=== PATIENT | male | born 1975 | race African-American/Black ===

== ENCOUNTER 2020-09-28 12:11 | Emergency (ER) | payer OTHER ==
[~2020-09-28] VITALS: Ht 172.7 cm; Wt 190.5 kg
[~2020-09-28 12:11] MED LIST: HYDROCHLOROTHIA50 MG PO; KEFLEX500 MG PO; NORCO 5-325 TA1 EACH PO; NORVASC10 MG PO; TOBREX5 ML OP; VENTOLIN17 GM INH; ZPAK PO
[2020-09-28] MEDS ORDERED: NORFLEX100 MG PO (13:10)
[2020-09-28] MEDS ORDERED: MEDROLDOSEPACK PO (13:10)
[2020-09-28 13:34] VITALS: BP 176/79
== END 2020-09-28 13:35 | disposition home or self-care (01) ==
LOC: ER 12:11
DX: S39.012A Strain of muscle, fascia and tendon of lower back, initial encounter (principal); M54.16 Radiculopathy, lumbar region; I10 Essential (primary) hypertension; E66.01 Morbid (severe) obesity due to excess calories; Z79.2 Long term (current) use of antibiotics; Z79.899 Other long term (current) drug therapy; Z68.44 Body mass index [BMI] 60.0-69.9, adult; V89.2XXA Person injured in unspecified motor-vehicle accident, traffic, initial encounter; Y93.I9 Activity, other involving external motion; Y92.488 Other paved roadways as the place of occurrence of the external cause; Y99.8 Other external cause status

== ENCOUNTER 2021-09-28 17:02 | Inpatient (IN) | payer OTHER ==
[~2021-09-28] VITALS: Ht 170.2 cm; Wt 183.3 kg
[~2021-09-28 17:02] MED LIST changes: +MEDROLDOSEPACK PO; +NORFLEX100 MG PO
[2021-09-28 17:40] VITALS: BP 200/59
[2021-09-28 21:27] LABS: HCO3 27.7 mmol/L (22.0-26.0); PCO2 42.4 mmHg (35.0-45.0); pH 7.433 (7.360-7.450); sO2 88.8 % (92.0-98.0)
[2021-09-28 21:28] LABS: PO2 53.8 mmHg (80.0-100.0)
[2021-09-28 23:23] LABS: BASOPHILS 0.5 % (0.0-2.0); EOSINOPHILS 1.8 % (0.0-3.0); HEMATOCRIT 46.1 % (42.0-52.0); HEMOGLOBIN 15.2 gm/dL (14.0-18.0); LYMPHOCYTES 5.4 % (24.0-44.0); MCH 29.6 pg (26.0-34.0); MCHC 32.9 g/dL (28.0-37.0); MCV 89.8 fL (80.0-100.0); MONOCYTES 8.8 % (1.0-8.0); PLATELET COUNT 238 thou/uL (150-400); POLYS 83.5 % (36.0-66.0); RBC 5.14 mil/uL (4.50-6.00); RDW 14.8 % (10.5-14.5); WBC 9.6 thou/uL (4.0-11.0)
[2021-09-28 23:30] LABS: CALCIUM 8.4 mg/dL (8.5-10.1); CREATININE 1.2 mg/dL (0.7-1.3); POTASSIUM 3.7 mmol/L (3.5-5.1)
[2021-09-28 23:40] LABS: MAGNESIUM 1.4 mg/dL (1.8-2.4); TOTAL BILIRUBIN 0.2 mg/dL (0.2-1.0); TOTAL PROTEIN 7.8 g/dL (6.4-8.2)
[2021-09-29 01:01] VITALS: BP 135/63
[2021-09-29 03:00] VITALS: BP 154/82
--- NOTE | 2021-09-29 04:31 | NUR ---
PT IS ON 4 LITER BLEED IN WITH THE CPAP. HE IS RESTING QUIETLY. HE IS MORE COMFORTABLE NOW THAT HE HAS A URINARY CATHETER IN PLACE. CALM AND COOPERATIVE.
[2021-09-29 06:53] LABS: APTT 27.6 Seconds (24.5-32.8); D-DIMER 3.54 ug/mLFEU (0.19-0.50); INR 1.08; PROTIME 11.7 Seconds (10.5-12.1)
[2021-09-29 07:42] VITALS: BP 99/75
--- NOTE | 2021-09-29 14:27 | NUR ---
INITIAL ASSESSMENT: SW reviewed chart and spoke with nursing and attending physician. Pt was admitted from home due to respiratory failure. Pt placed in Enhanced Isolation due to COVID. Pt has received the Toni [employer]oni COVID vaccination. Pt is afebrile and on 3L of O2. Pt is on IV abx/IV steorids. ID consulted. SW placed call to pt's room. No answer. Voice mailbox is not set up on listed contact number for pt ([phone]). Per chart, pt is alert/orientated x 4. Pt lives at home with his sister. Prior to admission, pt was independent with ADLs. Pt's PCP is listed as Dr. Rhina Dc. SW to continue to contact pt to obtain assessment info and discuss discharge planning. PT/OT ordered. SW is following to assist as needed with discharge planning.
[2021-09-29 16:01] VITALS: BP 147/90
--- NOTE | 2021-09-29 18:05 | NUR ---
PT ALERT AND ORIENTED TIMES FOUR, SOMEWHAT SLOW TO RESPOND TO QUESIONS. VSS. PT DENIES PAIN. PT WORKED WELL WITH PT/OT TODAY. UP SITTING ON THE SIDE OF BED FOR MOST OF THE SHIFT. PT TOLERATES MEDS AND MEALS. PT SLOWLY PROGRESSING TOWRADS POC GOALS.
[2021-09-29 19:23] VITALS: BP 122/67
[2021-09-30 02:43] VITALS: BP 104/67
--- NOTE | 2021-09-30 03:33 | NUR ---
ASSUMED PT CARE AT 1900. PT IS ALERT & ORIENTED X 3-4. PT IS SLOW TO RESPOND TO QUESTIONS AND NEEDS REASSURANCE. CURRENTLY ON CPAP WITH 4L O2. CHIANG WAS D/C'D DURING PREVIOUS SHIFT. PT HAS BEEN ABLE TO VOID AND HAS ADEQUATE OUTPUT. REMDESIVIR WAS STARTED DURING THIS SHIFT. VSS AFEBRILE. ALL NEEDS ARE MET AT THIS TIME. CONTINUE WITH PLAN OF CARE.
[2021-09-30 07:33] VITALS: BP 129/69
[2021-09-30 08:51] LABS: ABSOLUTE NEUTROPHILS 7.2 thou/uL (1.4-8.2); BASOPHILS 0.6 % (0.0-2.0); HEMATOCRIT 50.2 % (42.0-52.0); HEMOGLOBIN 16.2 gm/dL (14.0-18.0); LYMPHOCYTES 15.1 % (24.0-44.0); MCHC 32.2 g/dL (28.0-37.0); MCV 90.2 fL (80.0-100.0); MONOCYTES 10.9 % (1.0-8.0); PLATELET COUNT 291 thou/uL (150-400); POLYS 73.4 % (36.0-66.0); RBC 5.57 mil/uL (4.50-6.00); RDW 14.9 % (10.5-14.5); WBC 9.9 thou/uL (4.0-11.0)
[2021-09-30 09:16] LABS: ALBUMIN 2.9 g/dL (3.4-5.0); CALCIUM 8.6 mg/dL (8.5-10.1); POTASSIUM 3.8 mmol/L (3.5-5.1); TOTAL BILIRUBIN 0.3 mg/dL (0.2-1.0); TOTAL PROTEIN 8.3 g/dL (6.4-8.2)
[2021-09-30 09:30] LABS: ANION GAP 10 mmol/L (7-16); BUN 19 mg/dL (7-18); CALCIUM 8.9 mg/dL (8.5-10.1); CHLORIDE 99 mmol/L (98-107); CO2 28 mmol/L (21-32); DIRECT BILIRUBIN < 0.1 mg/dL (<0.1-0.2); GLUCOSE 98 mg/dL (74-106); PHOSPHORUS 4.6 mg/dL (2.5-4.9); POTASSIUM 4.5 mmol/L (3.5-5.1); SGOT 21 U/L (15-37); SGPT 19 U/L (30-65); SODIUM 137 mmol/L (136-145); TOTAL BILIRUBIN 0.3 mg/dL (0.2-1.0); TOTAL PROTEIN 8.1 g/dL (6.4-8.2)
[2021-09-30 11:35] VITALS: BP 153/86
--- NOTE | 2021-09-30 15:10 | NUR ---
BEV reviewed chart and spoke with nursing and attending physician. Pt remains in Enhanced Isolation due to COVID. Pt is afebrile and on 3L of O2. PT is on IV meds and Remdesivir. BEV spoke with pt via phone. Introduced role of SW. Pt is alert/orientated x 4. Pt states he lives at home with family. Prior to admission, pt was independent with ADLs. No use of DME. Pt's PCP is Dr. Rhina Dc in [place]. No hx of HH or post-acute placement. Pt states he recently started a new job and is hoping he can discharge home soon. He works from home. SW offered to provide documentation to verify pt's hospitalization if needed. Plan is for pt to discharge home when medically stable. BEV is following to assist as needed with discharge planning.
[2021-09-30 16:02] VITALS: BP 141/81
--- NOTE | 2021-09-30 17:40 | NUR ---
PT A/O X 4. PT NO COMPLAINTS OF PAIN. PT ASKS THIS RN X3 WHY PT IS STILL HERE, SPOKE WITH FAMILY VIA PHONE AT BEDSIDE TO HELP EDUCATE PT AND FAMILY. FALL PRECAUTIONS IN PLACE. WILL CONTINUE TO MONITOR.
--- NOTE | 2021-09-30 21:24 | HC ---
[facility] [place] [address] CONSULTATION Name: SUSANA MORRIS Room #: 353-P ADM IN M.R.#: [id number] Admission: 09/29/21 Attend Phys: Victorino Ramírez MD Discharge: Date of : 77 Report #: [id number] THIS REPORT FOR: cc: Rhina Dc Shanna R. DO Geha, Daniel J. MD ~ DATE OF SERVICE: 09/29/2021 INFECTIOUS DISEASES CONSULTATION REASON FOR CONSULTATION: Evaluate COVID-19 pneumonia. HISTORY OF PRESENT ILLNESS: The patient is a 46-year-old with underlying history of obesity, hypertension, obstructive sleep apnea. He has previously been vaccinated for COVID-19 last year where he received [employer] product. He has not had his booster. He noticed onset of fever, chills, headache, minimally productive cough, myalgias, arthralgias and progressive shortness of breath over the last 48 hours. He presented to the Emergency Room and he was hypoxic. He is now on 4 liters of oxygen per nasal cannula. X-ray showed bilateral pulmonary infiltrates. He has had previous pneumonia within the last month where he was on antibiotic therapy, treated at [facility]. He reports being COVID-19 negative at that point. He denies any nausea, vomiting or diarrhea. No dysuria or frequency. A 14-point review of system was negative other than what has been described above. He works from home. He has had no significant travel. No tuberculosis exposure or risk factors. No HIV or hepatitis history or risk factors. PAST MEDICAL HISTORY: Obesity, hypertension, obstructive sleep apnea, mild cerebral palsy, hammertoe surgery. FAMILY HISTORY: Diabetes and throat cancer. SOCIAL HISTORY: Current smoker of cigarettes, no significant alcohol intake. ALLERGIES: None known. MEDICATIONS: As noted on his MAR, which were reviewed. PHYSICAL EXAMINATION: GENERAL: He was afebrile and hemodynamically stable. He was morbidly obese. SKIN: Without rash or decubitus. No palpable adenopathy. HEENT: Eyes without scleral icterus. He did have conjunctivitis. Mouth without mucositis. NECK: Supple. LUNGS: Decreased breath sounds bilaterally. No consolidation. [facility] [address] [place] [address] CONSULTATION Name: SUSANA MORRIS Room #: 353-P [facility] IN [facility]#: [id number] Admission: 09/29/21 Attend Phys: Victorino Ramírez MD Discharge: Date of : 77 Report #: [id number] HEART: Regular, without murmur. ABDOMEN: Obese, soft and nontender. GENITAL AND RECTAL: Not performed. EXTREMITIES: Without clubbing, cyanosis or edema. NEUROLOGIC: Cranial nerves and strength in the upper and lower extremities within normal limits. PSYCHIATRIC: Mood without anxiety. LABORATORY DATA: Reviewed. MICROBIOLOGY: Reviewed. IMAGING: Chest x-ray reviewed. IMPRESSION: A 46-year-old with COVID-19 pneumonia due to SARS-CoV-2, respiratory failure, obstructive sleep apnea, hypertension, and morbid obesity. RECOMMENDATIONS: We will continue anti-inflammatory and antiviral therapy as well as antibiotic therapy, pending culture results. If the patient should progress, would add IL-6 inhibitor. This was discussed with the patient, who is in agreement with plan of care. <ELECTRONICALLY SIGNED> By: Cyrus Loza MD 09/30/21 [id number] yCrus Loza MD /nt
[2021-09-30 21:40] VITALS: BP 120/67
--- NOTE | 2021-10-01 03:10 | NUR ---
ASSUMED PT CARE AT 1900. VSS AFEBRILE. CURRENTLY ON CPAP WITH 4L O2. PT HAS A FLAT AFFECT. PT HAS NO C/O OF PAIN, NAUSEA/VOMITTING. PT IS ABLE TO MAKE NEEDS KNOWN AND AMBULATES WITH SBA. CONTINUE WITH PLAN OF CARE.
[2021-10-01 04:47] VITALS: BP 90/52
[2021-10-01 05:18] LABS: ANION GAP 11 mmol/L (7-16); BUN 26 mg/dL (7-18); CALCIUM 8.7 mg/dL (8.5-10.1); CHLORIDE 99 mmol/L (98-107); CO2 27 mmol/L (21-32); CREATININE 1.2 mg/dL (0.7-1.3); DIRECT BILIRUBIN < 0.1 mg/dL (<0.1-0.2); GLUCOSE 119 mg/dL (74-106); PHOSPHORUS 4.6 mg/dL (2.5-4.9); POTASSIUM 3.5 mmol/L (3.5-5.1); SGOT 22 U/L (15-37); SGPT 19 U/L (30-65); SODIUM 137 mmol/L (136-145); TOTAL BILIRUBIN 0.2 mg/dL (0.2-1.0); TOTAL PROTEIN 8.3 g/dL (6.4-8.2)
[2021-10-01 07:12] LABS: HIV ANTIBODY Non Reactive (Non Reactive)
[2021-10-01 07:14] VITALS: BP 110/68
--- NOTE | 2021-10-01 13:22 | NUR ---
BEV reviewed chart and spoke with nursing and attending physician. Pt remains in Enhanced Isolation due to COVID. Pt is afebrile and on 3L of O2. Pt is on IV meds and Remdesivir. Possible weekend discharge. BVE spoke with pt via phone to discuss discharge. Pt had multiple questions as to why he needs to stay in the hospital. SW explained that some of the meds he is on, cannot be provided outside of the hospital. Pt states he does not feel that he needs all of the medications that he is on. SW encouraged pt to talk to the physicians when they come by to see him today. Pt verbalized understanding. SW discussed possible need for home O2. Pt states he will not need it. BEV explained that a rest/exercise oximetry will be ordered to determine if he will need it. Pt confirmed his home address: [address] [place] [address] and his phone number: [phone]. Options for home O2 companies provided. No preference voiced. BEV faxed home O2 referral to [facility]. Notified [facility] liaison. Will need rest/exercise oximetry and script for home O2 faxed to [facility] if home O2 is needed. Pt will have transportation home. Plan is for pt to discharge home when medically stable. BEV is following and available to assist as needed with discharge planning. [facility], [place]--
[2021-10-01 15:29] VITALS: BP 101/77
--- NOTE | 2021-10-01 18:25 | NUR ---
RESUMED CARE THIS AM. PT NOW ON RA WITH OXYGEN SATURATION 94% AND ABOVE. PT EATING 100% OF MEALS, AND ORDERING MULTIPLE DELVERIES FROM [employer]. PT HAS FLAT AFFECT. PT DENIES PAIN AND ANY NEEDS. WILL CONTINUE TO MONITOR.
[2021-10-01 19:40] VITALS: BP 125/61
--- NOTE | 2021-10-02 04:03 | NUR ---
ASSUMED PT CARE AT 1900. PT IS ALERT & ORIENTED X 4, AND HAS A FLAT AFFECT. PT IS SLOW TO REPSOND TO QUESTIONS. PT ON RA BUT USES CPAP HS. O2 SATS 93-96%. PT IS ABLE TO MAKE NEEDS KNOWN AND IS PROGRESSING TOWARDS DISCHARGE GOALS.
[2021-10-02 04:30] VITALS: BP 116/68
[2021-10-02 07:34] VITALS: BP 97/58
[2021-10-02 08:09] LABS: HEMATOCRIT 51.8 % (42.0-52.0); HEMOGLOBIN 16.5 gm/dL (14.0-18.0); MCH 28.7 pg (26.0-34.0); MCHC 31.9 g/dL (28.0-37.0); PLATELET COUNT 329 thou/uL (150-400); RBC 5.76 mil/uL (4.50-6.00); RDW 14.9 % (10.5-14.5); WBC 11.4 thou/uL (4.0-11.0)
[2021-10-02 08:57] LABS: ALBUMIN 2.9 g/dL (3.4-5.0); ANION GAP 9 mmol/L (7-16); BUN 29 mg/dL (7-18); CALCIUM 8.5 mg/dL (8.5-10.1); CHLORIDE 102 mmol/L (98-107); CO2 28 mmol/L (21-32); CREATININE 1.3 mg/dL (0.7-1.3); DIRECT BILIRUBIN < 0.1 mg/dL (<0.1-0.2); GLUCOSE 88 mg/dL (74-106); POTASSIUM 3.6 mmol/L (3.5-5.1); SGOT 27 U/L (15-37); SGPT 28 U/L (30-65); SODIUM 139 mmol/L (136-145); TOTAL BILIRUBIN 0.1 mg/dL (0.2-1.0); TOTAL PROTEIN 7.9 g/dL (6.4-8.2)
[2021-10-02 10:04] LABS: ABSOLUTE NEUTROPHILS 6.6 thou/uL (1.4-8.2); PLATELET ESTIMATE NORMAL
--- NOTE | 2021-10-02 12:08 | NUR ---
pT TRIGGERED FOR HIGH bmi, 63.3, extreme class III obesity. Pt covid+, on enhanced isolation. RD unable to reach pt via phone, but per chart, pt is eating well with no c/o chewing/swallowing issues. He has been asking staff why he is still here and wants to be d/c. Possible d/c over the weekend. Could benefit from nutrition education r/t effective weight loss strategies. Will follow up next week if pt still here. Low nutrition risk with good intakes noted.
[2021-10-02] MEDS ORDERED: PREDNISONE 10 M10 MG PO (14:12)
[2021-10-02 15:00] VITALS: BP 97/58
--- NOTE | 2021-10-02 15:32 | NUR ---
PT DISCHARGE NOTE: GAVE PT DISCHARGE PAPERWORK AND SIGNED VERBAL CONSENT DUE TO COVID. GAVE SCRIPTS, EDUCATED PT ON UPCOMING APPOINTMENTS. DC IV AND TELEMETRY. ALL BELONGINGS WITH PT. WAITING ON SOMEONE TO WHEEL HIM DOWN TO CAR. WILL CONTINUE TO MONITOR.
[2021-10-06 06:30] LABS: T-SPOT.TB Negative
== END 2021-10-02 16:17 | disposition home or self-care (01) | DRG 177 ==
LOC: ER 17:02 → EROBS 09-29 00:07 → 3W 09-29 00:07
PROVIDERS: Nurse Practitioner; Specialist; ADMIT Internal Medicine; ATTEND Internal Medicine
PROC: 5A09357 Assistance with Respiratory Ventilation, Less than 24 Consecutive Hours, Continuous Positive Airway Pressure (ICD-10-PCS; 2021-09-29)
PROC: XW033E5 Introduction of Remdesivir Anti-infective into Peripheral Vein, Percutaneous Approach, New Technology Group 5 (ICD-10-PCS; principal; 2021-09-30)
PROC: 5A09357 Assistance with Respiratory Ventilation, Less than 24 Consecutive Hours, Continuous Positive Airway Pressure (ICD-10-PCS; 2021-10-01)
PROC: 5A09357 Assistance with Respiratory Ventilation, Less than 24 Consecutive Hours, Continuous Positive Airway Pressure (ICD-10-PCS; 2021-10-02)
DX: U07.1 COVID-19 (principal); J96.01 Acute respiratory failure with hypoxia; J12.82 Pneumonia due to coronavirus disease 2019; Z68.44 Body mass index [BMI] 60.0-69.9, adult; E78.5 Hyperlipidemia, unspecified; I10 Essential (primary) hypertension; G47.33 Obstructive sleep apnea (adult) (pediatric); E66.01 Morbid (severe) obesity due to excess calories; F17.210 Nicotine dependence, cigarettes, uncomplicated; G80.9 Cerebral palsy, unspecified; Z80.0 Family history of malignant neoplasm of digestive organs; E83.42 Hypomagnesemia; Z83.3 Family history of diabetes mellitus; Z71.6 Tobacco abuse counseling; Z79.899 Other long term (current) drug therapy
CPT/HCPCS: 10879